=== PATIENT | female | born 1990 | race Caucasian/White ===

== ENCOUNTER 2017-10-11 20:14 | Emergency (ER) | payer OTHER, MEDICAID ==
[~2017-10-11] VITALS: Ht 160 cm; Wt 70.3 kg
[~2017-10-11 20:14] MED LIST: LOMAIRA8 MG PO; PROZAC10 MG PO; RITALIN5 MG PO; TRAZODONE 150150 M1 PO
[2017-10-11 20:41] LABS: URINE BILIRUBIN NEGATIVE (Negative); URINE BLOOD NEGATIVE (Negative); URINE CLARITY CLEAR; URINE COLOR YELLOW; URINE GLUCOSE-RANDOM NEGATIVE (Negative); URINE KETONES NEGATIVE (Negative); URINE LEUKOCYTES-REFLEX NEGATIVE (Negative); URINE NITRITE-REFLEX NEGATIVE (Negative); URINE PROTEIN NEGATIVE (Negative); URINE SPECIFIC GRAVITY <= 1.005 (1.005-1.030); URINE UROBILINOGEN 0.2 E.U./dl (0.2-1.0)
[2017-10-11 20:58] LABS: ABSOLUTE BASOPHILS 0.1 thou/uL (0.0-0.2); ABSOLUTE EOSINOPHILS 0.2 thou/uL (0.0-0.7); ABSOLUTE LYMPHOCYTES 2.9 thou/uL (0.8-5.3); ABSOLUTE MONOCYTES 0.7 thou/uL (0.0-1.2); ABSOLUTE NEUTROPHILS 5.8 thou/uL (1.6-8.1); EOSINOPHILS 2.1 %; HEMATOCRIT 37.6 % (37.0-47.0); HEMOGLOBIN 12.3 gm/dL (12.0-15.0); LYMPHOCYTES 30.3 %; MCH 27.7 pg (26.0-34.0); MCHC 32.8 g/dL (28.0-37.0); MCV 84.5 fL (80.0-100.0); MONOCYTES 6.8 %; MPV 8.2 fl. (7.2-11.1); NUCLEATED RBCS 0 /100WBC; PLATELET COUNT* 250 thou/uL (150-400); POLYS 59.8 %; RBC 4.46 mil/uL (4.20-5.00); RDW-CV 16.5 % (10.5-14.5); WBC 9.6 thou/uL (4.0-11.0)
[2017-10-11 21:08] LABS: CALCIUM 8.7 mg/dL (8.5-10.1); CREATININE 0.7 mg/dL (0.6-1.3); POTASSIUM 3.5 mmol/L (3.5-5.1)
[2017-10-11 21:13] LABS: ALBUMIN 3.9 g/dL (3.4-5.0); TOTAL BILIRUBIN 0.2 mg/dL (<0.1-1.0); TOTAL PROTEIN 7.5 g/dL (6.4-8.2)
[2017-10-11 22:53] VITALS: BP 110/53
== END 2017-10-11 22:54 | disposition home or self-care (01) ==
LOC: M.ERS 20:14
PROVIDERS: Physician Assistant
DX: O20.0 Threatened abortion (principal); Z3A.01 Less than 8 weeks gestation of pregnancy; Z98.890 Other specified postprocedural states; Z88.8 Allergy status to other drugs, medicaments and biological substances

== ENCOUNTER 2017-12-13 16:03 | Emergency (ER) | payer OTHER ==
[~2017-12-13] VITALS: Ht 160 cm; Wt 70.3 kg
[2017-12-13] MEDS ORDERED: PHENTERMINE HCL15 MG PO (16:18)
[2017-12-13] MEDS ORDERED: IBUPROFEN 600600 M1 PO (16:49)
[2017-12-13 16:58] VITALS: BP 112/38
== END 2017-12-13 16:58 | disposition home or self-care (01) ==
LOC: M.ERS 16:03
DX: S93.692A Other sprain of left foot, initial encounter (principal); F32.9 Major depressive disorder, single episode, unspecified; Z88.5 Allergy status to narcotic agent; Z88.6 Allergy status to analgesic agent; W22.8XXA Striking against or struck by other objects, initial encounter; Y93.89 Activity, other specified; Y92.89 Other specified places as the place of occurrence of the external cause; Y99.8 Other external cause status

== ENCOUNTER 2020-05-19 17:37 | Emergency (ER) | payer OTHER, MEDICAID ==
[~2020-05-19] VITALS: Ht 160 cm; Wt 79.4 kg
[~2020-05-19 17:37] MED LIST changes: +IBUPROFEN 600600 M1 PO; +PHENTERMINE HCL15 MG PO
[2020-05-19 17:54] VITALS: BP 128/83
[2020-05-19] MEDS ORDERED: RITALIN5 MG PO (17:59)
[2020-05-19] MEDS ORDERED: FLUOXETINE HCL40 MG PO (17:59)
== END 2020-05-19 21:46 | disposition left against medical advice (07) ==
LOC: M.ERS 17:37
DX: R68.84 Jaw pain (principal); Z53.21 Procedure and treatment not carried out due to patient leaving prior to being seen by health care provider; Y08.89XA Assault by other specified means, initial encounter; Y93.89 Activity, other specified; Y92.89 Other specified places as the place of occurrence of the external cause; Y99.8 Other external cause status

== ENCOUNTER → 2020-09-30 | Outpatient (CLI) | payer OTHER, MEDICAID ==
[~2020-09-30] MED LIST changes: +FLUOXETINE HCL40 MG PO
== END ==
LOC: M.LAB 16:43
PROVIDERS: ATTEND Podiatrist Foot & Ankle Surgery
DX: Z01.812 Encounter for preprocedural laboratory examination (principal); Z20.822 Contact with and (suspected) exposure to COVID-19